=== PATIENT | female | born 1995 | race Caucasian/White ===

== ENCOUNTER → 2016-11-27 | Outpatient (CLI) | payer OTHER, MEDICAID ==
[2016-05-21 03:23] VITALS: BP 112/59
== END ==
LOC: LAB 11-24 11:37
DX: E75.22 Gaucher disease (principal)

== ENCOUNTER → 2017-06-29 | Outpatient (CLI) | payer OTHER, MEDICAID ==
[~2017-06-29] VITALS: Ht 175.3 cm; Wt 70.5 kg
[~2017-06-29] MED LIST: ZOFRAN4 M2 PO
[2017-06-29 17:25] VITALS: BP 109/70
[2017-06-29 18:01] LABS: HEMATOCRIT 36.7 % (37.0-47.0); HEMOGLOBIN 12.8 g/dL (12.5-16.0); MEAN PLATELET VOLUME 9.4 fl (7.4-10.4); RED BLOOD COUNT 4.42 M/mm3 (4.10-5.30); RED CELL DISTRIBUTION WIDTH 13.5 % (11.5-14.5); WHITE BLOOD COUNT 7.3 K/mm3 (4.8-10.8)
[2017-06-29 18:15] LABS: BUN/CREATININE RATIO 27.5 (6.0-26.0); TOTAL BILIRUBIN 1.1 mg/dL (0.2-1.3); TOTAL PROTEIN 7.1 g/dL (6.3-8.2)
[2017-06-29 20:43] VITALS: BP 96/55
== END ==
LOC: AMSURD 17:16
PROVIDERS: Internal Medicine
DX: O99.611 Diseases of the digestive system complicating pregnancy, first trimester (principal); K59.00 Constipation, unspecified; Z3A.09 9 weeks gestation of pregnancy; R11.2 Nausea with vomiting, unspecified; Z98.890 Other specified postprocedural states
CPT/HCPCS: J2765; J7120

== ENCOUNTER → 2021-08-02 | Outpatient (CLI) | payer BC ==
[2021-08-02 12:46] LABS: URINE APPEARANCE CLOUDY; URINE COLOR YELLOW; URINE PROTEIN(semi-quant) 1+ (NEGATIVE)
[2021-08-02 12:47] LABS: URINE BILIRUBIN NEGATIVE (NEGATIVE); URINE BLOOD NEGATIVE (NEGATIVE); URINE GLUCOSE NEGATIVE (NEGATIVE); URINE KETONE NEGATIVE (NEGATIVE); URINE LEUKOCYTE ESTERASE NEGATIVE (NEGATIVE); URINE NITRATE NEGATIVE (NEGATIVE); URINE UROBILINOGEN NORMAL (NORMAL)
== END ==
LOC: LAB 11:18
PROVIDERS: Internal Medicine
DX: N39.0 Urinary tract infection, site not specified (principal)

== ENCOUNTER → 2021-08-04 | Outpatient (CLI) | payer BC ==
[2021-08-04 16:28] LABS: BASO # 0.03 K/mm3 (0.02-0.10); EOS # 0.12 K/mm3 (0.04-0.40); EOS % 1.5 % (1.0-5.0); HEMATOCRIT 35.4 % (37.0-47.0); LYMPH# 1.79 K/mm3 (1.50-4.00); MEAN CELL VOLUME 87 fl (78-100); MEAN CORPUSCULAR HEMOGLOBIN 30 pg (27-31); MEAN CORPUSCULAR HGB CONC 34 g/dL (33-37); MEAN PLATELET VOLUME 9.3 fl (7.4-10.4); MONO # 0.66 K/mm3 (0.20-0.80); NEU # 5.36 K/mm3 (1.40-6.50); PLATELET COUNT 312 K/mm3 (130-400); RED BLOOD COUNT 4.07 M/mm3 (4.10-5.30); RED CELL DISTRIBUTION WIDTH 11.8 % (11.5-14.5)
[2021-08-04 16:32] LABS: ALBUMIN 3.8 g/dL (3.5-5.0); POTASSIUM 3.8 mmol/L (3.5-5.1); SODIUM 136 mmol/L (136-145)
[2021-08-04 16:33] LABS: CALCIUM 8.6 mg/dL (8.3-10.5)
[2021-08-04 16:35] LABS: GLUCOSE 97 mg/dL (65-105); TOTAL PROTEIN 6.5 g/dL (6.4-8.3)
[2021-08-04 16:36] LABS: CARBON DIOXIDE 20 mmol/L (22-29)
[2021-08-04 16:37] LABS: TOTAL BILIRUBIN 0.4 mg/dL (0.2-1.2)
[2021-08-04 16:40] LABS: AST-SGOT 12 U/L (5-34)
[2021-08-04 16:41] LABS: ALT/SGPT 18 U/L (0-55)
[2021-08-04 16:42] LABS: LIPASE 26 U/L (8-78)
[2021-08-04 17:32] LABS: ERYTHROCYTE SEDIMENTATION RATE 9 mm/hr (0-20)
== END ==
LOC: LAB 16:01
PROVIDERS: Internal Medicine
DX: N39.0 Urinary tract infection, site not specified (principal)

== ENCOUNTER → 2021-08-15 | Outpatient (CLI) | payer BC | LOC: LAB 12:28 | DX: U07.1 COVID-19 (principal) ==